=== PATIENT | male | born 1980 | race African-American/Black ===

== ENCOUNTER 2020-03-14 01:25 | Emergency (ER) | payer OTHER ==
[~2020-03-14] VITALS: Ht 180.3 cm; Wt 77.1 kg
--- NOTE | 2020-03-14 01:48 | Emergency Department Note ---
History of Present Illnes History of Present Illness Chief Complaint: Genitourinary History of Present Illness This is a 39 year old male with urethra discharge. Onset (how long ago): day(s) (5) Location: genital Quality: dull Radiation: Denies non-radiation, Denies back, Denies neck, Denies extremity, Denies abdomen, Denies periumbilical, Denies flank, Denies proximal, Denies distal, Denies other Severity: moderate Timing of current episode: constant Progression: worsening Context: Reports recent illness Relieving factors: none Exacerbating factors: none Associated symptoms: Reports denies other symptoms Treatments prior to arrival: none Past Medical/Family History Physician Review I have reviewed the patient's past medical and family history. Any updates have been documented here. Past Medical History Past Medical History: None Social History Smoking Cessation: Current some day smoker Alcohol Use: Occasional Review of Systems Review of Systems Constitutional: Reports no symptoms EENTM: Reports no symptoms Cardiovascular: Reports no symptoms Respiratory: Reports no symptoms Gastrointestinal: Reports no symptoms Genitourinary: Reports as per HPI Musculoskeletal: Reports no symptoms Integumentary: Reports no symptoms Neurological: Reports no symptoms Psychological: Reports no symptoms Endocrine: Reports no symptoms Hematological/Lymphatic: Reports no symptoms Physical Exam Related Data Vital signs reviewed: Yes Physical Exam CONSTITUTIONAL Constitutional: Present well-developed, Present well-nourished HENT HENT: Present normocephalic, Present atraumatic, Present oropharynx clear/moist, Present nose normal HENT L/R: Present left ext ear normal, Present right ext ear normal EYES Eyes: Reports PERRL, Reports conjunctivae normal NECK Neck: Present ROM normal PULMONARY Pulmonary: Present effort normal, Present breath sounds normal CARDIOVASCULAR Cardiovascular: Present regular rhythm, Present heart sounds normal, Present capillary refill normal, Present normal rate GASTROINTESTINAL Abdominal: Present soft, Present nontender, Present bowel sounds normal GENITOURINARY Genitourinary: Present exam deferred SKIN Skin: Present warm, Present dry MUSCULOSKELETAL Musculoskeletal: Present ROM normal NEUROLOGICAL Neurological: Present alert, Present oriented x 3, Present no gross motor or sensory deficits PSYCHOLOGICAL Psychological: Present mood/affect normal, Present judgement normal Assessment & Plan Medical Decision Making MDM urethritis Reassessment Reassessment same Assessment & Plan Final Impression: (1) STD (male) Depart Disposition: HOME, SELF-CARE FAYE GUERRERO MD Mar 14, 2020 01:48
[2020-03-14] MEDS ORDERED: CEFTRIAXONE SOD 250 MG VIAL IM ONE (02:00)
[2020-03-14] MEDS ORDERED: CEFTRIAXONE SOD 500 MG VIAL ONE (02:01)
== END 2020-03-14 02:10 | disposition home or self-care (01) ==
LOC: FSED 01:50
DX: A64 Unspecified sexually transmitted disease (principal); F17.210 Nicotine dependence, cigarettes, uncomplicated
CPT/HCPCS: 99282; J0696 ×2